=== PATIENT | female | born 1960 | race African-American/Black ===

== ENCOUNTER 2017-12-29 09:58 | Emergency (ER) | payer MEDICARE ==
[~2017-12-29] VITALS: Ht 162.6 cm; Wt 121.1 kg
[2017-12-29] MEDS ORDERED: Ketorolac 30mg Inj IV ONE (10:00)
[2017-12-29 10:02] VITALS: BP 97/60
--- NOTE | 2017-12-29 10:28 | Emergency Room Report ---
History of Present Illness General Chief Complaint: Pain Source: Patient Present Illness HPI Patient is scheduled for right hip replacement in [place]. She says is needed because of degenerative arthritis. She drove from there to [place] on Tuesday. She's been taking tramadol, motrin, Valium and Flexeril for the pain. She also has muscle spasms. The pain is out of control and 10/10 at this time. She denies any fevers. In addition she has swelling and increased pain in her right knee which is also 10/10. She denies any prior history of gout or renal disease. No calf tenderness, dyspnea, hemoptysis, chest pain. Some nausea with the pain. No rashes, dysuria, vomiting, diarrhea. No trauma. H/O asthma Allergies: Coded Allergies: No Known Allergies (Unverified , 12/29/17) Patient History Past Medical History: see triage record Social History: Reports: smoking Social History Narrative From [place] Reviewed Nursing Documentation: PMH: Agreed, PSxH: Agreed Nursing Documentation-PMH Past Medical History: No History, Except For Hx Asthma: Yes Review of Systems All Other Systems: negative except mentioned in HPI Physical Exam Vital Signs Date Time Temp Pulse Resp B/P (MAP) Pulse Ox O2 Delivery O2 Flow Rate FiO2 12/29/17 09:54 98.6 98 16 97/60 99 Room Air 98.6 Sp02 EP Interpretation: reviewed, normal General Appearance: well appearing, no apparent distress, GCS 15, obese Head: normocephalic Eyes: bilateral eye normal inspection, bilateral eye PERRL ENT: moist mucus membranes Neck: supple Respiratory: lungs clear, normal breath sounds Cardiovascular #1: regular rate, rhythm Cardiovascular #2: 2+ radial (R) Gastrointestinal: normal inspection, normal bowel sounds, non tender, non- distended Musculoskeletal: back normal, gait/station normal, no calf tenderness, decreased range of motion - R hip and knee, no crepetance, swelling - minimal R knee with minimal warmth Neurologic: alert, oriented x3, grossly normal Skin: normal inspection, warm/dry Medical Decision Making Diagnostic Impression: Primary Impression: Gout Qualified Codes: M10.9 - Gout, unspecified Additional Impressions: Renal insufficiency DJD (degenerative joint disease) Qualified Codes: M16.11 - Unilateral primary osteoarthritis, right hip Epigastric pain ER Course Patient presents with increased chronic pain hip and new severe pain R knee. No trauma. DDx: gout, DJD, exacerbation of chronic pain, arthritis, DVT amongst others. Exam c/w gout but need x-rays and labs. Patient will be treated with toradol and zofran. Exam against DVT. Labs with elevated uric acid, BUN/creat, ESR. Normal WBC. Xrays with severe DJD in hip and also some in knee. Still with significant pain. Morphine ordered. During treatment, patient with severe epigastric pain. Burning. EKG = no injury. Given mylanta and viscous lidocaine. Chest pain resolved. Colchicine also ordered. Patient improved. Discussed renal issue. Need for follow up with her MD and also concern over high NSAID use. Patient stable for outpatient observation and treatment. Laboratory Tests Test 12/29/17 10:10 White Blood Count 9.8 K/UL (4.8-10.8) Red Blood Count 4.23 M/UL (4.20-5.40) Hemoglobin 11.5 G/DL (12.0-16.0) L Hematocrit 35.7 % (37.0-47.0) L Mean Corpuscular Volume 84 FL (80-99) Mean Corpuscular Hemoglobin 27.3 PG (27.0-31.0) Mean Corpuscular Hemoglobin Concent 32.4 G/DL (32.0-36.0) Red Cell Distribution Width 14.7 % (11.6-14.8) Platelet Count 422 K/UL (150-450) Mean Platelet Volume 6.9 FL (6.5-10.1) Neutrophils (%) (Auto) 62.3 % (45.0-75.0) Lymphocytes (%) (Auto) 27.9 % (20.0-45.0) Monocytes (%) (Auto) 7.2 % (1.0-10.0) Eosinophils (%) (Auto) 1.1 % (0.0-3.0) Basophils (%) (Auto) 1.4 % (0.0-2.0) Erythrocyte Sedimentation Rate 65 MM/HR (0-30) H Prothrombin Time 10.3 SEC (9.30-11.50) Prothrombin Time INR 1.0 (0.9-1.1) PTT 28 SEC (23-33) Urine Color Pale yellow Urine Appearance Clear Urine pH 5 (4.5-8.0) Urine Specific [place] 1.020 (1.005-1.035) Urine Protein Negative (NEGATIVE) Urine Glucose (UA) Negative (NEGATIVE) Urine Ketones 1+ (NEGATIVE) H Urine Occult Blood Negative (NEGATIVE) Urine Nitrite Negative (NEGATIVE) Urine Bilirubin Negative (NEGATIVE) Urine Urobilinogen Normal MG/DL (0.0-1.0) Urine Leukocyte Esterase 1+ (NEGATIVE) H Urine RBC 0-2 /HPF (0 - 2) Urine WBC 2-4 /HPF (0 - 2) Urine Squamous Epithelial Cells Few /LPF (NONE/OCC) Urine Bacteria Occasional /HPF (NONE) Urine Mucus Occasional /LPF Sodium Level 136 MMOL/L (136-145) Potassium Level 3.8 MMOL/L (3.5-5.1) Chloride Level 99 MMOL/L (98-107) Carbon Dioxide Level 29 MMOL/L (21-32) Anion Gap 8 mmol/L (5-15) Blood Urea Nitrogen 37 mg/dL (7-18) H Creatinine 2.0 MG/DL (0.55-1.30) H Estimate Glomerular Filtration Rate 25.7 mL/min (>60) Glucose Level 104 MG/DL (74-106) Uric Acid 9.1 MG/DL (2.6-7.2) H Calcium Level 9.7 MG/DL (8.5-10.1) Total Bilirubin 0.4 MG/DL (0.2-1.0) Aspartate Amino Transferase (AST) 15 U/L (15-37) Alanine Aminotransferase (ALT) 28 U/L (12-78) Alkaline Phosphatase 63 U/L (46-116) Total Protein 8.1 G/DL (6.4-8.2) Albumin 3.3 G/DL (3.4-5.0) L Globulin 4.8 g/dL Albumin/Globulin Ratio 0.7 (1.0-2.7) L EKG Diagnostic Results Rate: normal Rhythm: NSR ST Segments: no acute changes Rhythm Strip Diag. Results EP Interpretation: yes Rhythm: NSR, no PVC's, no ectopy Other X-Ray Diagnostic Results Other X-Ray Diagnostic Results #1: X-Ray ordered: pelvis # of Views/Limited Vs Complete: 1 View Indication: Pain EP Interpretation: Yes Interpretation: no dislocation, no soft tissue swelling, no fractures, other - DJD Impression: Other Electronically Signed by: Yeyo Ibarra MD Other X-Ray Diagnostic Results #2: X-Ray ordered: R hip # of Views/Limited Vs Complete: 2 View Indication: Pain EP Interpretation: Yes Interpretation: no dislocation, no soft tissue swelling, no fractures, other - djd Impression: Other Electronically Signed by: Yeyo Ibarra MD Other X-Ray Diagnostic Results #3: X-Ray ordered: R knee # of Views/Limited Vs Complete: 3 View Indication: Pain EP Interpretation: Yes Interpretation: no dislocation, no soft tissue swelling, no fractures, other - djd Impression: Other Electronically Signed by: Yeyo Ibarra MD Last Vital Signs Date Time Temp Pulse Resp B/P (MAP) Pulse Ox O2 Delivery O2 Flow Rate FiO2 12/29/17 15:30 98.6 98 15 116/76 100 Room Air 98.6 Status: improved Disposition: HOME, SELF-CARE Condition: Improved Scripts Colchicine (Colchicine) 0.6 Mg Capsule 0.6 MG PO Q6HR Y for gout pain, #20 CAP Prov: Yeyo Ibarra M.D. 12/29/17 Yeyo Ibarra M.D. Dec 29, 2017 10:28
[2017-12-29] MEDS ORDERED: Morphine Sulfate 4mg/ml Inj IVP ONE ×2 (10:30→11:45)
[2017-12-29 10:38] LABS: BASOPHILS % (AUTO) 1.4 % (0.0-2.0); EOSINOPHILS % (AUTO) 1.1 % (0.0-3.0); HEMATOCRIT 35.7 % (37.0-47.0); HEMOGLOBIN 11.5 G/DL (12.0-16.0); LYMPHOCYTES % (AUTO) 27.9 % (20.0-45.0); MEAN CORPUSCULAR VOLUME 84 FL (80-99); MONOCYTES % (AUTO) 7.2 % (1.0-10.0); NEUTROPHILS % (AUTO) 62.3 % (45.0-75.0); PLATELET COUNT 422 K/UL (150-450); RED BLOOD COUNT 4.23 M/UL (4.20-5.40); RED CELL DISTRIBUTION WIDTH 14.7 % (11.6-14.8); WHITE BLOOD COUNT 9.8 K/UL (4.8-10.8)
[2017-12-29 10:39] LABS: APPEARANCE,URINE CLEAR; BILIRUBIN, URINE NEGATIVE (NEGATIVE); COLOR,URINE PALE YELLOW; GLUCOSE, URINE (UA) NEGATIVE (NEGATIVE); KETONES,URINE 1+ (NEGATIVE); LEUKOCYTE ESTERASE ,URINE 1+ (NEGATIVE); NITRITE,URINE NEGATIVE (NEGATIVE); PH,URINE 5 (4.5-8.0); PROTEIN,URINE NEGATIVE (NEGATIVE); UROBILINOGEN,URINE NORMAL MG/DL (0.0-1.0)
[2017-12-29 10:45] LABS: ANION GAP 8 mmol/L (5-15); BLOOD UREA NITROGEN 37 mg/dL (7-18); CALCIUM 9.7 MG/DL (8.5-10.1); CARBON DIOXIDE 29 MMOL/L (21-32); CHLORIDE 99 MMOL/L (98-107); POTASSIUM 3.8 MMOL/L (3.5-5.1); SODIUM 136 MMOL/L (136-145)
[2017-12-29 11:04] LABS: ALANINE AMINOTRANSFERASE 28 U/L (12-78); ALBUMIN 3.3 G/DL (3.4-5.0); ALBUMIN/GLOBULIN RATIO 0.7 (1.0-2.7); ALKALINE PHOSPHATASE 63 U/L (46-116); ASPARTATE AMINO TRANSFERASE 15 U/L (15-37); BILIRUBIN,TOTAL 0.4 MG/DL (0.2-1.0)
[2017-12-29] MEDS ORDERED: Mylanta II UD 30ml ORAL ONE (11:45)
[2017-12-29] MEDS ORDERED: Lidocaine 2% Visc 15ml soln ORAL ONE (11:45)
--- NOTE | 2017-12-29 11:52 | Diagnostic Imaging Report ---
Indication: Reason For Exam: PAIN Technique: 3 views of the right knee Comparison: None Findings: There is a large suprapatellar effusion. There are medial and lateral lateral compartment osteophytes and minimal lateral compartment degenerative joint space narrowing. No acute fractures. No dislocations. There is a small superior pole patellar osteophyte Impression: Joint effusion. This raises concern for internal derangement or inflammatory process. Degenerative changes, as described No acute bony trauma
--- NOTE | 2017-12-29 11:55 | Diagnostic Imaging Report ---
Indication: Reason For Exam: PAIN Technique: 2 views of the right hip, one view of the pelvis Comparison: none Findings: Abnormal configuration of the right humeral head suggests prior slipped capital femoral epiphysis. There is marked degenerative narrowing of the right hip joint as well as subchondral cirrhosis and osteophyte formation. No definite fractures, but evaluation for such is severely limited by patient body habitus. The left hip joint is preserved. Sacroiliac joint spaces are preserved. 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 Note, however, that body habitus severely limits sensitivity for such. If there is high clinical suspicion, cross-sectional imaging should be considered.
[2017-12-29 12:02] VITALS: BP 105/89
[2017-12-29 13:31] VITALS: BP 116/76
[2017-12-29] MEDS ORDERED: oxyCODONE HCL/Acetaminophen 5/325mg ORAL ONE (14:45)
[2017-12-29] MEDS ORDERED: COLCHICINE0.6 M1 PO (14:48)
[2017-12-29 15:30] VITALS: BP 116/76
--- NOTE | 2018-01-11 17:02 | Cardiology Report ---
APPROVED REPORT EKG Measurement Heart [id number] Normal sinus rhythm Cannot rule out Anterior infarct, age undetermined Abnormal ECG
== END 2017-12-29 15:32 | disposition home or self-care (01) ==
LOC: EDBD 09:58 → EMR 11:40
DX: M10.9 Gout, unspecified (principal); N28.9 Disorder of kidney and ureter, unspecified; M25.551 Pain in right hip; G89.29 Other chronic pain; Z96.641 Presence of right artificial hip joint; F17.200 Nicotine dependence, unspecified, uncomplicated; J45.909 Unspecified asthma, uncomplicated; R10.13 Epigastric pain
CPT/HCPCS: 36415; 72170; 73502; 73562; 80053; 81001; 84550; 85025; 85610; 85651; 85730; 93005; 96374; 96375; 96376; 99284; J1885; J2270; J2405